=== PATIENT | male | born 1965 | race Caucasian/White ===

== ENCOUNTER 2021-07-29 11:26 | Inpatient (IN) | payer OTHER ==
[2021-07-29] MEDS ORDERED: METHOCARBAMOL 500 MG TABLET PO PRN (12:34)
[2021-07-29] MEDS ORDERED: BISMUTH SUBSALICYLATE 262 MG/15 ML BTL PO PRN (12:34)
[2021-07-29] MEDS ORDERED: ONDANSETRON *ODT* 4 MG TABLET SL PRN (12:34)
[2021-07-29] MEDS ORDERED: MAGNESIUM HYDROX 2400MG/30ML ORAL SUSPENSION 30 ML CUP PO PRN (12:34)
[2021-07-29] MEDS ORDERED: DICYCLOMINE HCL 10 MG CAPSULE PO PRN (12:34)
[2021-07-29] MEDS ORDERED: MAG HYDROX/AL HYDROX/SIMETH 30 ML UNIT-DOSE CUP PO PRN (12:34)
[2021-07-29] MEDS ORDERED: MAGNESIUM CITRATE 300 ML BOTTLE PO PRN (12:34)
[2021-07-29] MEDS ORDERED: LOPERAMIDE HCL 2 MG CAPSULE PO PRN (12:34)
[2021-07-29] MEDS ORDERED: IBUPROFEN 400 MG TABLET (FP) PO PRN (12:34)
[2021-07-29] MEDS ORDERED: ACETAMINOPHEN 325 MG TABLET (FP) PO PRN ×2 (12:34)
[2021-07-29] MEDS ORDERED: BENZOCAINE/MENTHOL (CHLORASEPTIC ) LOZENGE MM PRN (12:34)
[2021-07-29 13:09] VITALS: BMI 32.3
[2021-07-29 16:33] LABS: ALBUMIN 3.8 g/dl (3.4-5.0); BLOOD UREA NITROGEN 18.6 mg/dL (7-18); CALCIUM 9.3 mg/dL (8.5-10.1)
[2021-07-29 16:37] LABS: BILIRUBIN,TOTAL 0.3 mg/dL (0.2-1); TOT PROT 6.7 g/dl (6.4-8.2)
[2021-07-29 16:46] LABS: HEMATOCRIT 40.6 % (35.4-49); HEMOGLOBIN 13.7 GM/dL (11.7-16.9); MCH 29.9 pg (25.7-33.7); MCHC 33.7 g/dl (32.0-35.9); MEAN CELL VOLUME 88.6 fl (80-96); MEAN PLT VOLUME 9.9 fl (7.5-11.1); PLATELET COUNT 202 10^3/uL (134-434); RBC 4.58 M/mm3 (4.00-5.60); RDW 13.9 % (11.9-15.9); WHITE BLOOD COUNT 6.2 K/mm3 (4.0-10.0)
[2021-07-29] MEDS: hydrOXYzine PAMOATE 25 MG CAPSULE (FP) PO SCH ×4 (17:48→22:29)
[2021-07-29] MEDS: PRENATAL VITAMINS W/ FOLIC ACID TABLET (FP) PO SCH (17:48)
[2021-07-29] MEDS ORDERED: THIAMINE HCL 100 MG TABLET (FP) PO SCH (22:00)
[2021-07-29] MEDS ORDERED: MELATONIN 5 MG TABLETS PO SCH (22:00)
[2021-07-30] MEDS: hydrOXYzine PAMOATE 25 MG CAPSULE (FP) PO SCH ×3 (05:39→15:03)
[2021-07-30 07:06] VITALS: BP 113/73; PULSE 67; TEMP 97.3
[2021-07-30] MEDS: PRENATAL VITAMINS W/ FOLIC ACID TABLET (FP) PO SCH (10:22)
[2021-07-31 06:06] LABS: SARS-CoV-2 NAA Not Detected (Not Detected)
== END 2021-07-30 13:20 | disposition home or self-care (01) | DRG 774 ==
LOC: YASAS 11:26 → Y6N 15:55
PROVIDERS: ADMIT Allergy & Immunology; ATTEND Allergy & Immunology
PROC: HZ2ZZZZ Detoxification Services for Substance Abuse Treatment (ICD-10-PCS; principal; 2021-07-29)
DX: F10.230 Alcohol dependence with withdrawal, uncomplicated (principal); F14.20 Cocaine dependence, uncomplicated; Z87.891 Personal history of nicotine dependence
CPT/HCPCS: 36415; 80053; 85027; 86780; 87811; 93005; 93010; C9803-CS; U0003; U0005